=== PATIENT | male | born 1945 | race Caucasian/White ===

== ENCOUNTER 2016-07-29 02:24 | Day surgery (SDC) | payer OTHER ==
[~2016-07-29] VITALS: Ht 188 cm; Wt 138.2 kg
[2016-07-29] VITALS (9 sets, daily range): BP systolic 88–115; BP diastolic 54–72; PULSE 66–90; RESP 14–23; O2SAT 95–97
[~2016-07-29 02:24] MED LIST: ASPI-973 PO; ATOR20TA PO; CLOP75TA3 PO; FURO-129 PO; GLPZ5T PO; INSU3INS3 SUBQ; LISI-567 PO; METF1000 PO; METO-272 PO; OXYC1TAB24 PO; TAMS0.4C98 PO; WARF5TAB PO
[2016-07-29] MEDS ORDERED: Propofol 10,000 mCg/mL 20 mL Inj ONE (02:25)
[2016-07-29] MEDS ORDERED: fentaNYL-PF 50 mCg/mL 2 mL Inj ONE (02:25)
[2016-07-29] MEDS ORDERED: Lactated Ringer's 1,000 ML IV SCH (05:00)
--- NOTE | 2016-07-29 10:33 | PCM.HPANE ---
Patient Data Surgeon Admitting Provider: Attending Provider:Luz Maria Pavon MD Primary Care Physician:Pastor Dela Cruz MD Other Provider:Mely Taylor Anesthesia Reason for Visit Persistent Atrial Fibrillation Ht/WT & BMI Body Mass Index Allergies Coded Allergies: No Known Allergies (Unverified , 05/17/16) Past Anesthesia History Anesthesia History: Denies:: Anesthesia Reactions, Malignant Hyperthermia Diabetes History Hx Diabetes?: Yes (DM2) Type of Diabetes: Type II Glycemic Control: Insulin & Oral Medication MRSA MRSA: No Medications Blood Thinner: Aspirin, Plavix Active Scripts Metoprolol Succinate ER 50 Mg Tab.er.[id number] Mg PO BID #60 Prov:Jean Freitas 06/08/16 Warfarin Sodium (Coumadin)5 Mg Tablet5 Mg PO DAILY #30 TABLET Prov:Jean Freitas 06/08/16 oxyCODONE-Acetaminophen 5-325 mg 1 Each Tablet1-2 Tab PO Q4H PRN For Severe Pain #90 TABLET Prov:Diomedes Cheng DO 05/20/16 Reported Medications Clopidogrel Bisulfate (Plavix)75 Mg Gumxmc07 Mg PO DAILY 30 Days Ref 0 06/07/16 Tamsulosin (Flomax)0.4 Mg Capsule0.4 Mg PO DAILY Ref 0 05/13/16 Insuln Asp Prt/Insulin Aspart (NovoLOG 70/30 U100 Insulin Flexpen)100 Unit/Ml [id number] Unit SUBQ morning and evening #1 PENINJ Ref 0 05/13/16 Metformin (Glucophage)1,000 Mg Tablet1,000 Mg PO BID Ref 0 05/13/16 Lisinopril 20 Mg Gfnuxq00 Mg PO DAILY 30 Days Ref 0 05/13/16 Atorvastatin (Lipitor)20 Mg Rtjzhg48 Mg PO DAILY Ref 0 05/13/16 Glipizide 5 Mg Tablet5 Mg PO BID 30 Days 05/13/16 Furosemide (Lasix)20 Mg Zodklr86 Mg PO DAILY 30 Days Ref 0 05/13/16 Aspirin 81 Mg Ggtsid91 Mg PO DAILY Ref 0 05/13/16 History History of ENT Problems?: Yes HEENT History: Positive for:: Sinus Problem (more so this past month) Hx of Heart Problems?: Yes Cardiovascular History: Positive for:: Atrial Fibrillation (HX OF) Cardiac Surgery (S/P HEART CATH W/ CALEB IN LAD 07/2011) Hypertension (HYPERLIPIDEMIA) Irregular Heartbeat (HX A FIB) Denies:: Congestive Heart Failure Edema Heart Murmur Pacemaker Thrombophlebitis Valvular Heart Disease Hx of Respiratory Problem?: Yes Respiratory History: Positive for:: Dyspnea (transient at rest. ) Denies:: Use of C-PAP Machine Hx Neurologic Problems?: No Neurological History: Denies:: Dizziness Hx of GI Problems?: Yes Gastrointestinal History: Positive for:: Diverticulitis (S/P SIGMOID RESECTION W/ TEMP. COLOSTOMY 1997) Denies:: Gastroesphageal Reflux Gastrointestinal Bleeding Heartburn Hepatitis Hiatal Hernia Rectal Bleeding Hx of Problems?: No Male Hx: Denies:: Prostate Problems Scrotal Mass Testicular Surgery Skin History: Denies:: History Skin Disorders? Pressure Ulcers Hx Musculoskeletal Problems?: Yes Musculoskeletal History: Positive for:: Degenerative Joint Joint Replacement (S/P RT TKA RT RKA LOOSENING=CURRENT PROBLEM) Denies:: Back Injury Musculoskeletal Trauma Hx of Psycho/Social Problems?: No Hx Surgeries?: Yes (Knee replacement. 18'' of bowel removal) Hx Any Other Health Problems?: Yes Other History: Denies:: Cancer Endocrine Disease Hospitalization Thyroid Disease History Blood Transfusions: Positive for:: Blood Transfusions Denies:: Blood Transfuse Reaction Hx Diabetes: Yes (DM2) Hx Alcohol Use: Yes (very very rare)Hx Substance Use: No Smoking Status: Never Smoker Have You Smoked inLast 12 mo: No Stop/Bang Risk Assessment Category Category 1A: Patient has history of documented sleep apnea, and HAS NOT received any narcotic, sedative or anesthesia administration during this stay. Category 1B: Patient has history of documented sleep apnea, and HAS received any narcotic , sedative or anesthesia administration during this stay Category 2: Patient has SUSPECTED Obstructive Sleep Apnea, and HAS received any narcotic , sedative or anesthesia administration during this stay. Category 3: Patient has SUSPECTED Obstructive Sleep Apnea and HAS NOT received narcotic, sedative or anesthesia administration during this stay. Category 4: Outpatient in Procedural Areas with known sleep apnea or who screen positive for High Risk via the STOP/BANG questionnaire. Exam Exam General Appearance: Alert, Oriented X3, Cooperative, No Acute Distress HEENT/AIRWAY: MP 2 Lungs: Clear to Auscultation, Normal Air Movement Heart: Exam Unremarkable, Regular Rate/Rhythm, No Murmurs/Rubs/Gallops Plan Impression Patient chart reviewed, patient interviewed and anesthestic plan with risks, benefits, and alternatives discussed, and informed consent obtained. NPO Status: [id number] 05/17/16 ASA Physical Status: ASA3 Severe Disease Anesthetic Plan: GA Bene/Risks/Altern/Consents: Yes HP Complete Prior to Induction: Yes Mauro Espinoza MD Jul 29, 2016 09:54
--- NOTE | 2016-07-29 11:12 | NUR ---
[facility] ADMIT PETER/CV 71 YR OLD MALE ADMITTED TO [facility] FOR PETER/CV TODAY AT 1000. IV STARTED, QUESTIONS ANSWERED, AND AFIB CONFIRMED ON MONITOR. BEDSIDE PT/INR WAS 2.4/28.4. FINGERSTICK GLUCOSE WAS 137. DR DE LA ROSA AWARE. PROCEDURES WILL BE WITH ANESTHESIA.
--- NOTE | 2016-07-29 12:12 | PCM.ANEP1 ---
Post Anesthesia Phase 1 PACU Phase 1 Assessment Vital Signs Vital Signs Date Time Temp Pulse Resp B/P Pulse Ox O2 Delivery O2 Flow Rate FiO2 07/29/16 12:10 72 22 89/54 97 Nasal Cannula 3.00 07/29/16 12:05 67 23 88/55 97 Nasal Cannula 3.00 07/29/16 11:04 36.7 90 18 115/72 97 Room Air Anesthetic Administered: GA Level of Alertness: Awake, talking MCDONOUGH's with Equal Strength: Yes Pain: No Nausea or Vomiting: No Oxygen Delivery: Nasal Cannula Lungs: Clear to Auscultation, Normal Air Movement Dermatome Level: Full Sensation Mauro Espinoza MD Jul 29, 2016 12:12
--- NOTE | 2016-07-29 12:39 | NUR ---
[facility] HERE FOR BOTH PETER AND CV. PETER WAS ABORTED AND CV TOOK PLACE. PT RECEIVED 200J AND ATTAINED SR. POST EKG WAS DONE. SEE ANESTHESIA RECORD FOR DETAILS OF PROCEDURES. IN POST SEDATION RECOVERY PT HAS REMAINED IN SR WITH VSS. WILL CONTINUE TO MONITOR CLOSELY AND WAIT FOR TO RETURN BEFORE DISCHARGING HOME. Addendum: 07/29/16 at 1504 by NICOL NOWAK RN *PETER WAS ACCOMPLISHED AND PICTURES VIEWED.
--- NOTE | 2016-07-29 13:12 | NUR ---
[facility] DISCHARGE INSTRUCTIONS INCLUDING MEDICATIONS, F/U APPT, AND POST SEDATION INSTRUCTIONS WERE REVIEWED WITH PT AND AND THEY VERBALIZED UNDERSTANDING. PT WAS DISCHARGED WITH AT 1315 IN STABLE CONDITION.
--- NOTE | 2016-07-29 13:23 | PCM.ANEP2 ---
Post Anesthesia Evaluation ASA/CMS Post Anesthesia VS in Patient's Normal Range?: Yes Resp Stable; Airway Patent?: Yes CV Function & Hydration Stable: Yes Mental Status Recovered?: Yes Pain control Satisfactory?: Yes N/V Control Satisfactory?: Yes Mauro Espinoza MD Jul 29, 2016 13:22
--- NOTE | 2016-07-29 15:29 | DRSVH ---
[facility] [address] [place] [address] Echocardiogram Report Name: AMAN JACKSON DStudy Date: 07/29/2016 Height: 74 in Hospital Exam Location: [facility] [place] Weight: 304 lb Gender: Male BSA: 2.6 m2 : 1945 Age: 71 yrs BP: 115/72 mmHg Reason For Study: Persistent atrial fibrillation Ordering Physician: Performed By: Kimani Goss Interpretation Summary 1. No thrombus is appreciated in the left atrium or left atrial appendage. Procedure: A 2D transesophageal echocardiogram with spectral and color flow Doppler was performed. Informed consent for Transesophageal Echocardiogram, and use of a contrast agent as needed, was obtained prior to the procedure. Sedation was managed by anesthesiologist; see anesthesiology notes for details. There were no complications. Atria: The atrial appendage was somewhat difficult to visualize. However, in the views obtained, no thrombus is appreciated. Mitral Valve: Leaflets appear thin with normal excursion. Aortic Valve: The aortic valve is trileaflet. The aortic valve opens well. There is trace aortic regurgitation. Tricuspid Valve: The tricuspid valve is not well visualized. Pulmonic Valve: The pulmonic valve is not well seen, but is grossly normal. Reading Physician:02:09 PM
--- NOTE | 2016-07-29 19:18 | PROCED ---
[address] [address] PROCEDURE NOTE PATIENT: AMAN JACKSON : 1945 MR#: [id number] ADMIT: 07/29/2016 JOB ID: [id number] DATE OF SERVICE: 07/29/2016 POSTOPERATIVE DIAGNOSIS(ES): PREOPERATIVE DIAGNOSIS(ES): SURGEON: Luz Maria Pavon MD PROCEDURES PERFORMED: DC cardioversion. INDICATIONS: Atrial fibrillation. DESCRIPTION OF PROCEDURE: Informed consent was obtained. The patient was brought to the [facility]. Anesthesia provided the anesthesia for the case. Prior to the procedure the patient had a transesophageal echocardiogram which confirmed that there was no evidence for clot in the left atrial appendage or left atrium. Pads were placed in the AP position. After appropriate level of sedation, the patient was given 1 biphasic synchronized shock of 200 joules with conversion from atrial fibrillation to sinus rhythm with a stable blood pressure and heart rate. There were no complications. IMPRESSION: Successful DC cardioversion from atrial fibrillation to sinus rhythm. JESIKA
[2016-10-05] MEDS ORDERED: FUR20 PO (18:39)
[2016-10-05] MEDS ORDERED: INS7030U SUBQ (18:39)
[2016-10-05] MEDS ORDERED: LOV120 SUBQ (18:39)
[2016-10-05] MEDS ORDERED: ASPI-973 PO (18:39)
== END 2016-07-29 23:59 | disposition home or self-care (01) ==
LOC: SOUO 02:24
PROVIDERS: ATTEND Internal Medicine
DX: I48.1 Persistent atrial fibrillation (principal); E11.9 Type 2 diabetes mellitus without complications; Z79.4 Long term (current) use of insulin; Z79.84 Long term (current) use of oral hypoglycemic drugs; Z79.82 Long term (current) use of aspirin; Z79.02 Long term (current) use of antithrombotics/antiplatelets; Z79.01 Long term (current) use of anticoagulants; I25.10 Atherosclerotic heart disease of native coronary artery without angina pectoris; Z95.5 Presence of coronary angioplasty implant and graft; I10 Essential (primary) hypertension
CPT/HCPCS: 92960; 93005; 99151; C8925; J2250; J3010; J7120

== ENCOUNTER 2016-08-16 06:32 | Inpatient (IN) | payer OTHER, MEDICARE ==
[~2016-08-16] VITALS: Ht 188 cm; Wt 135.4 kg
[2016-08-16] VITALS (9 sets, daily range): BP systolic 106–136; BP diastolic 56–83; PULSE 68–104; RESP 16–18; O2SAT 96–99
--- NOTE | 2016-08-16 08:00 | NUR ---
ADMISSION NOTE MALE PT ADMITTED FOR SOTOLOL ADMINISTRATION. DISCUSSED PLAN OF CARE WITH PT. SEE ADMIT AND FLOW SHEET
[2016-08-16] MEDS ORDERED: Alum-Mag Hydrox-Simeth 30 mL Suspension PO PRN (08:25)
[2016-08-16] MEDS ORDERED: Polyethylene Glycol (PEG) 17 Gm Powder PO PRN (08:25)
[2016-08-16 09:09] LABS: Magnesium 1.5 mg/dL (1.6-2.6)
[2016-08-16] MEDS ORDERED: METO-272 PO (09:10)
[2016-08-16] MEDS ORDERED: oxyCODONE-Acetamin 5-325 mg Tablet PO PRN (10:35)
--- NOTE | 2016-08-16 13:30 | NUR ---
TRANSFER NOTE TRANSFERED TO [facility]. REPORT GIVEN
--- NOTE | 2016-08-16 14:43 | HP ---
[address] [address] HISTORY AND PHYSICAL PATIENT: AMAN JACKSON : 1945 MR#: [id number] ADMIT: 08/16/2016 JOB ID: [id number] REASON FOR ADMISSION: Initiation of antiarrhythmic therapy with sotalol for treatment of atrial fibrillation. CHIEF COMPLAINT: Episodic lightheadedness. HISTORY: At the present is a pleasant 71-year-old man who was discovered to have atrial fibrillation after knee surgery a few months ago. He was started on warfarin and after being therapeutic for about a month, he came in for a cardioversion, which was successful and yielded a sinus rhythm but only for a few days, according to the patient. He noticed the return of a rapid and irregular rhythm with episodic lightheadedness again. The patient had not been treated with an antiarrhythmic medication previously and since he had felt improved energy after conversion to sinus rhythm, Dr. Luz Maria Pavon and the patient discussed antiarrhythmic therapy options. With his history of coronary stenting, the flecainide and propafenone medications were ruled out, and they decided on starting him on sotalol. PAST MEDICAL HISTORY: This includes atrial fibrillation, diabetes type 2 and right knee replacement surgery on two occasions. ALLERGIES: No known drug allergies. FAMILY HISTORY: Not contributory. REVIEW OF SYSTEMS: Respiratory: Positive for dyspnea. Neuro: Positive for dizziness. Cardiac: Positive for palpitations. Musculoskeletal: Positive for trace peripheral edema, and recovery from right knee surgery. The other points of the 14 point review of systems are negative. LABORATORY DATA: A 12-lead ECG prior to starting sotalol showed atrial fibrillation with an average ventricular rate of 95 bpm and a QT of 333 msec with a QTc of 419 msec. He has a normal QRS duration. The ECG two hours after the first dose of sotalol showed an average heart rate of 86 bpm, QT 360 msec and QTc of 431 msec. Serum chemistry shows sodium 133, potassium 5.0, chloride 96, BUN 30, creatinine 1.07, magnesium 1.5 and the other measurements are normal. PHYSICAL EXAMINATION: Vital signs: Pulse 104 bpm on initial exam with respiratory rate 17, BP 122/71, oximetry 96% on room air. The patient is a pleasant and cooperative middle-age, white male, in no distress. He is well oriented to person, place and purpose for being here. Head is normocephalic, eye movements and pupils are normal. Neck is without JVD, carotid pulses are weak but there are no bruits. Chest exam: Breath sounds are full and clear in all montalvo. Cardiac exam reveals an irregularly irregular rhythm without gallops or murmurs heard. Abdomen is obese and nontender, bowel sounds present, and there are no abdominal bruits heard. Peripheral pulses are intact, and the lower extremities showed trace edema bilaterally. ASSESSMENT: Paroxysmal and persistent atrial fibrillation for the past few months. He is symptomatic with episodic lightheadedness and palpitations. Antiarrhythmic therapy will be started with sotalol 80 mg q.12 h. with 12-lead ECGs recorded at 2-3 hours after each dose to observe and measure the QT interval. If he remains within 15% of baseline, then the dose can be continued. If he remains in atrial fibrillation and the QT interval remains in range, then we will consider increasing the sotalol dose to 120 mg q.12 h. in the hopes of affecting a spontaneous conversion or maintaining sinus rhythm after cardioversion.
[2016-08-16] MEDS: MeTOProlol XL 50 mg ER24 Tablet PO SCH ×2 (15:06→19:55)
--- NOTE | 2016-08-16 15:24 | NUR ---
From [facility] to [id number] via wheelchair at 1330. Atrial-fib on tele. BP stable, afebrile. A/O and in good spirits. RA sats 96%, denies pain or shortness of breath, appears in no distress. Sotalol dose given at 1030, scheduled Q12hr with 12-lead EKG 2-3 hours after dose. Sitting up in bed watching tv, no concerns at this time.
[2016-08-16] MEDS: metFORMIN ER 500 mg ER24 Tablet PO SCH (18:16)
[2016-08-16] MEDS: Insulin ASPART 70/30 FlexPen 300 Unit/3 mL Inj SUBQ PRN (21:02)
[2016-08-17] VITALS (7 sets, daily range): BP systolic 107–126; BP diastolic 70–82; PULSE 70–106; RESP 16–20; O2SAT 96–98
[2016-08-17 03:09] LABS: INR 1.57 ratio
--- NOTE | 2016-08-17 04:48 | NUR ---
Sotalol / QTc / Tele / Hyperglycemia Sotalol 80mg administered at 2230, EKG done 2 hours after administration, with a QTc of 409. Baseline QTc 419. Pt denies chest pain, pressure or palpitations, Tele Afib with PVCs with HR 60-80s per Clay Artisan. HS blood glucose was 266, covered with PRN Novolog 70/30 with 35 units. Am re-check of blood glucose was 87, Pt given apple juice to hold his sugars until morning.
[2016-08-17] MEDS ORDERED: Benzoc-Butamben-Tetraca Spray 20 Gm Spray TOPICAL ONE (06:00)
[2016-08-17] MEDS: metFORMIN ER 500 mg ER24 Tablet PO SCH ×2 (07:51→16:58)
[2016-08-17] MEDS: MeTOProlol XL 50 mg ER24 Tablet PO SCH ×3 (07:52→19:53)
[2016-08-17] MEDS: Insulin ASPART 70/30 FlexPen 300 Unit/3 mL Inj SUBQ PRN ×3 (07:55→17:02)
--- NOTE | 2016-08-17 11:20 | PROG NOTE ---
[address] [address] PROGRESS NOTE PATIENT: AMAN JACKSON : 1945 MR#: [id number] ADMIT: 08/16/2016 JOB ID: [id number] DATE: 08/17/2016 CHIEF COMPLAINT: Episodic lightheadedness and fatigue in atrial fibrillation. SUBJECTIVE: The patient is a very pleasant 71-year-old man who has persistent atrial fibrillation which is symptomatic. He had a cardioversion earlier in July when not on antiarrhythmic medication and he relapsed back into atrial fibrillation a few days after the procedure. He was admitted yesterday for initiation of antiarrhythmic therapy with sotalol and is tolerating the medication well. He has received two doses and feels no side effects. The patient has cardiac awareness of the irregular rhythm but is otherwise doing well. LABORATORY DATA: Today shows an INR of 1.57. His ECG after the second dose of sotalol shows essentially no change in the QT interval. The QTc is 409 msec which is not prolonged. OBJECTIVE: Vital signs this morning are BP 126/78, pulse rate averaged 71 per minute, oxygen 97% on room air. The physical examination is unchanged from yesterday. ASSESSMENT: The patient is tolerating sotalol 80 mg b.i.d. well and there is no significant prolongation of the QT interval on EKG. Unexpectedly, his INR is subtherapeutic. He has had INRs between 2 and 3 for the weeks prior to the cardioversion but the number has dropped since then. PLAN: He will be given an additional 10 mg dose of warfarin this morning and have the INR checked again about 5 p.m. this evening. The patient will receive Lovenox 120 mg subcu b.i.d. to cover for anticoagulation until the INR is above 2 again. This morning, we will not increase the sotalol dose to 120 mg because we do not want to enhance the probability of a spontaneous conversion. For tomorrow, arrangements will be made for a PETER and cardioversion with Dr. Pavon. She prefers general anesthesia for the PETER and that will also be arranged. If the patient has no left atrial thrombus on PETER, then he will be cardioverted. Depending on his QT intervals, we may increase the sotalol dose after the cardioversion.
--- NOTE | 2016-08-17 14:53 | PCM.PHAPRO ---
Progress Warfarin dosing for AFIB Admit for chemical cardioversion [facility]Aug 19Aug 20Aug 21Aug 22Aug 23Jul 27 INR PEND 1.57 INR change #VALUE! Warf Dose 5MG X1 15mg total a/ Subtherapeutic INR of unknown chronicity p/ Cards will defer cardioversion until duration of subtx anticoagulation known Bump dose of 10mg per cardiology request today. Roshan Lucero S Pharm D Aug 17, 2016 14:53
--- NOTE | 2016-08-17 16:05 | NUR ---
Sotalol Patient received 80mg dose of sotalol at 1000. EKG done at 1200, QTc 463. Patient denies any pain/disconfort. VSS. Patient up walking around unit independently.
[2016-08-17] MEDS: Sodium Chloride LOK Flush 10 mL Syringe IVFLUSH SCH ×4 (16:57→22:01)
[2016-08-17 17:17] LABS: INR 1.57 ratio
[2016-08-18 03:02] VITALS: BP 117/79; PULSE 66; RESP 18; O2SAT 97
[2016-08-18 03:16] LABS: INR 1.85 ratio
--- NOTE | 2016-08-18 05:01 | NUR ---
Sotalol Protocol Sotalol dose administered at 2200, EKG done around 0020, QTc at 447. No c/o chest pain, pressure or palpitations. Tele Afib 60-80s with occ PVCs. VSS and afebrile. No c/o SOB, RA SpO2 sats 97-98%. Pt up in room independently, gait steady.
[2016-08-18 05:42] VITALS: PULSE 87
[2016-08-18 08:00] VITALS: PULSE 77
[2016-08-18] MEDS ORDERED: 0.9% Sodium Chloride 1,000 ML IV SCH (08:00)
[2016-08-18 08:24] VITALS: BP 106/64; PULSE 82; RESP 14; O2SAT 98
[2016-08-18] MEDS: Insulin ASPART 70/30 FlexPen 300 Unit/3 mL Inj SUBQ PRN ×2 (08:35→12:06)
[2016-08-18] MEDS: metFORMIN ER 500 mg ER24 Tablet PO SCH (08:36)
[2016-08-18] MEDS: MeTOProlol XL 50 mg ER24 Tablet PO SCH (08:36)
[2016-08-18] MEDS: Sodium Chloride LOK Flush 10 mL Syringe IVFLUSH SCH ×2 (08:37)
[2016-08-18 11:50] VITALS: BP 101/59; PULSE 82; RESP 18; O2SAT 96
--- NOTE | 2016-08-18 12:28 | PCM.DIMED ---
Discharge Instructions Date of Service Aug 18, 2016 Dates of Hospitalization Aug 16, 2016 at 08:18 Discharge Diagnosis Discharge Diagnosis Persistent Atrial Fibrillation Diabetes Diet Diabetic Activity No restrictions Call your provider Other (Fainting or near Fainting) Patient Instructions Provider: Luz Maria Pavon MD Follow-up in: 4 weeks (Office will call you.) Luisito Rivera PA-C Aug 18, 2016 12:28
[2016-08-18] MEDS ORDERED: WARF5TAB PO (12:32)
[2016-08-18] MEDS ORDERED: METO-272 PO (12:32)
[2016-08-18] MEDS ORDERED: BET80 PO (12:32)
--- NOTE | 2016-08-18 13:15 | NUR ---
Social Work Discharge: SW met with patient at bedside to discuss discharge plan. Patient states residing in [place] with Jasmin, . Patient states residing in a one story home and to assist and care for needs. Patient payer as [employer] and Medicare. Patient states PCP as MD Dela Cruz. Patient has no previous HHC or SNF history. Patient has a walker and cane for use at home. Patient has no AD and declined completion at this time. Patient independent with needs and ambulating in room. Patient denied any discharge needs at this time. SW will continue to follow if further needs arise PLAN: Home with via POV. No anticipated discharge needs identified at this time. SW to follow. Anne HINES Addendum: 08/18/16 at 1320 by DENISE QUESADA SS Amended: Links added.
--- NOTE | 2016-08-18 13:20 | NUR ---
Discharge Patient continues to be in Afib but is not a candidate for cardioversion due to non therapeutic INR levels. Patient returning home on Lovenox, warfarin and sotalol. He will follow up with cardiology as outpatient. Paper rx and discharge instructions printed and reviewed verbally with patient. All questions answered, IV DC'd intact. Patient ambulated off unit with all personal belongings and discharged home via personal vehicle.
[2016-10-05] MEDS ORDERED: ASPI-973 PO (18:39)
[2016-10-05] MEDS ORDERED: FUR20 PO (18:39)
[2016-10-05] MEDS ORDERED: LOV120 SUBQ (18:39)
[2016-10-05] MEDS ORDERED: INS7030U SUBQ (18:39)
--- NOTE | 2016-11-03 09:47 | DIS ---
[address] [address] DISCHARGE SUMMARY PATIENT: AMAN JACKSON : 1945 MR#: [id number] ADMIT: 08/16/2016 JOB ID: [id number] DIS: 08/18/2016 REASON FOR ADMISSION: The patient was admitted to start new medical therapy for atrial fibrillation with sotalol. CHIEF COMPLAINT: Episodic lightheadedness. BRIEF HISTORY: The patient is a very pleasant 71-year-old man who was found to have atrial fibrillation after knee surgery a few months ago. He was started on warfarin, and after being therapeutic for about a month, he was cardioverted to sinus rhythm which according to his symptoms he felt it lasted only a few days. He noticed the return to rapid and irregular rhythm with episodic lightheadedness. With his particular cardiac history and anatomy, it was deemed best that he be started on sotalol rather than other antiarrhythmic medications and this hospitalization was arranged for that purpose. He was to be started on sotalol 80 mg b.i.d. with an increase in dose if possible and then cardioverted with hopes of maintaining sinus rhythm and improving his symptoms. COURSE IN HOSPITAL: The patient was admitted to the telemetry unit, and after baseline ECG and lab work were obtained, he was started on sotalol 80 mg b.i.d. His baseline serum chemistry showed normal potassium but a low magnesium at 1.5. He was treated with magnesium oxide 800 mg b.i.d. and the serum magnesium decreased into the normal range and was 1.9 on the second day. Also it was noted that his initial INR was 1.57 which is subtherapeutic. He was given additional, increased doses of warfarin but after two days, his INR was still only 1.85. Lovenox 120 mg q.12 hours by subcutaneous injection was administered to cover the anticoagulation need. The patient remained in atrial fibrillation even after the fifth dose of sotalol 80 mg. The 12 lead ECG showed no abnormal increase in the QT interval and so he was discharged on sotalol at 80 mg b.i.d. He felt well on sotalol and had no side effect symptoms. DISPOSITION: The patient was discharged home in good condition with a prescription for Lovenox 120 mg q.12 hours to be administered until his INR from warfarin became in the therapeutic range of 2-3. He was scheduled with a follow up appointment with Dr. Pavon in one month. He will continue his diabetic diet and there are no activity restrictions from this hospitalization. DISCHARGE MEDICATIONS: 1. Sotalol 80 mg b.i.d. 2. Atorvastatin 20 mg daily. 3. Plavix 75 mg daily. 4. Furosemide 40 mg daily. 5. Glipizide 5 mg b.i.d. 6. Metformin 1 g b.i.d. 7. Oxycodone-acetaminophen 5/325 mg tablets, 1 or 2 tablets p.o. q.4 hours p.r.n. pain. 8. Tamsulosin 0.4 mg daily. 9. Metoprolol succinate 50 mg t.i.d. FINAL DIAGNOSES: 1. Persistent, symptomatic atrial fibrillation. 2. Diabetes mellitus type 2.
== END 2016-08-18 13:00 | disposition home or self-care (01) | DRG 310 ==
LOC: SOU 08:18 → PCC 13:00
PROVIDERS: ADMIT Internal Medicine; ATTEND Internal Medicine
PROC: 3E0D7RZ Introduction of Antiarrhythmic into Mouth and Pharynx, Via Natural or Artificial Opening (ICD-10-PCS; principal; 2016-08-16)
DX: I48.0 Paroxysmal atrial fibrillation (principal); E11.9 Type 2 diabetes mellitus without complications; Z79.4 Long term (current) use of insulin; Z79.01 Long term (current) use of anticoagulants

== ENCOUNTER 2016-10-06 00:30 | Day surgery (SDC) | payer OTHER ==
[~2016-10-06] VITALS: Ht 188 cm; Wt 138.0 kg
[2016-10-06] VITALS (8 sets, daily range): BP systolic 84–110; BP diastolic 45–79; PULSE 81–88; RESP 11–17; O2SAT 94–99
[~2016-10-06 00:30] MED LIST changes: +BET80 PO; +FUR20 PO; +INS7030U SUBQ; -INSU3INS3 SUBQ; +LOV120 SUBQ
[2016-10-06] MEDS ORDERED: Propofol 10 mg/mL 20 mL Inj ONE (00:31)
[2016-10-06] MEDS ORDERED: Lactated Ringer's 1,000 ML IV SCH ×2 (05:00→07:02)
[2016-10-06] MEDS ORDERED: Lactated Ringer's 500 ML IV PRN (07:02)
[2016-10-06] MEDS ORDERED: Labetalol 5 mg/mL 4 mL Inj IV PRN (07:05)
[2016-10-06] MEDS ORDERED: fentaNYL-PF 50 mCg/mL 2 mL Inj IVPUSH PRN (07:05)
[2016-10-06] MEDS ORDERED: Ondansetron 2 mg/mL 2 mL Inj IVPUSH PRN (07:05)
[2016-10-06] MEDS ORDERED: HYDROmorphone 1 mg/mL Inj IVPUSH PRN (07:05)
[2016-10-06] MEDS ORDERED: Phenylephrine 10,000 mCg/mL Inj IVPUSH PRN (07:05)
[2016-10-06] MEDS ORDERED: MetoCLOpramide 5 mg/mL 2 mL Inj IVPUSH PRN (07:05)
[2016-10-06] MEDS ORDERED: Dexamethasone 4 mg/mL Inj IVPUSH PRN (07:05)
[2016-10-06] MEDS ORDERED: EPHEDrine Sulfate 50 mg/mL Inj IVPUSH PRN (07:05)
[2016-10-06 14:17] LABS: BASOPHILS % (AUTO) 0.7 % (0-3); EOSINOPHILS % (AUTO) 2.5 % (0-5); MONOCYTES % (AUTO) 8.6 % (4-12); Mean Corpuscular Hemoglobin 29.4 pg (27.0-35.0); Mean Corpuscular Volume 89.3 fL (81-100); NEUTROPHILS % (AUTO) 62.9 % (40-74); Platelet Count 212 bil/L (150-400)
[2016-10-06] MEDS ORDERED: RIVA20TA PO (14:23)
[2016-10-06] MEDS ORDERED: LISI10TA PO (14:23)
--- NOTE | 2016-10-06 16:30 | NUR ---
Discharge instructions reviewed with patient and spouse. Despite cardioversion attempt x 2, patient remains in atrial fibrillation. Dr Pavon has spoken with patient and spouse about plan for treatment.
--- NOTE | 2016-10-07 01:56 | PROCED ---
[address] [address] PROCEDURE NOTE PATIENT: AMAN JACKSON : 1945 MR#: [id number] ADMIT: 10/06/2016 JOB ID: [id number] DATE OF SERVICE: 10/06/2016 PREOPERATIVE DIAGNOSIS(ES): POSTOPERATIVE DIAGNOSIS(ES): SURGEON: PROCEDURE PERFORMED: Direct current cardioversion. INDICATIONS: This is a 71-year-old man with persistent atrial fibrillation. Although it is rate controlled he is symptomatic with this. He presents for cardioversion. PROCEDURE: Informed consent was obtained prior to the procedure. The patient confirmed that he had been on his anticoagulation regularly. Pads were placed in the AP position. Anesthesia was provided by the Anesthesia service. Using a 200 joule biphasic synchronized shock the patient was initially converted to sinus rhythm. Unfortunately, he reverted back to atrial fibrillation fairly quickly. As he was still well-sedated, an additional biphasic synchronized shock of 200 joules was delivered to conversion for brief period of sinus rhythm, once again back to atrial fibrillation. IMPRESSION: Successful conversion to sinus rhythm but it was only briefly sustained, reverting back to atrial fibrillation despite being on beta-kodak, as well as sotalol. JESIKA
== END 2016-10-06 23:59 | disposition home or self-care (01) ==
LOC: SOUO 00:30
PROVIDERS: ATTEND Internal Medicine
DX: I48.91 Unspecified atrial fibrillation (principal); Z79.01 Long term (current) use of anticoagulants; Z79.899 Other long term (current) drug therapy

== ENCOUNTER 2016-11-16 00:25 | Day surgery (SDC) | payer MEDICARE, OTHER ==
[~2016-11-16] VITALS: Ht 188 cm; Wt 137.8 kg
[2016-11-16] VITALS (17 sets, daily range): BP systolic 92–119; BP diastolic 60–75; PULSE 70–94; RESP 12–20; O2SAT 94–98
[~2016-11-16 00:25] MED LIST changes: -FUR20 PO; -LISI-567 PO; +LISI10TA PO; -LOV120 SUBQ; +RIVA20TA PO; -WARF5TAB PO
[2016-11-16] MEDS ORDERED: Propofol 10,000 mCg/mL 20 mL Inj ONE (00:26)
[2016-11-16] MEDS ORDERED: EPHEDrine/NS 5 mg/mL 5 mL Syringe ONE (00:26)
[2016-11-16] MEDS ORDERED: fentaNYL-PF 50 mCg/mL 2 mL Inj ONE (00:26)
[2016-11-16] MEDS ORDERED: Lidocaine PF 1% 30 mL Inj ONE (00:26)
[2016-11-16] MEDS ORDERED: Glycopyrrolate 0.2 MG/ML 1mL Inj ONE (00:26)
[2016-11-16] MEDS ORDERED: Ondansetron 2 mg/mL 2 mL Inj ONE (00:26)
[2016-11-16] MEDS ORDERED: Succinylcholine Chloride 20 mg/mL 5 mL Inj ONE (00:26)
[2016-11-16] MEDS ORDERED: Phenylephrine/NS 100 mCg/mL 10 mL Syringe IVPUSH ONE (00:26)
[2016-11-16] MEDS ORDERED: Lactated Ringer's 1,000 ML IV SCH ×2 (05:00→12:08)
[2016-11-16] MEDS ORDERED: Benzoc-Butamben-Tetraca Spray 20 Gm Spray TOPICAL PRN (09:05)
[2016-11-16] MEDS ORDERED: Vancomycin Inj 2,000 MG in 0.9% Sodium Chloride 500 ML IV ONE (10:00)
[2016-11-16 11:24] LABS: BASOPHILS % (AUTO) 0.6 % (0-3); EOSINOPHILS % (AUTO) 2.7 % (0-5); MONOCYTES % (AUTO) 8.9 % (4-12); Mean Corpuscular Hemoglobin 30.4 pg (27.0-35.0); Mean Corpuscular Volume 88.4 fL (81-100); NEUTROPHILS % (AUTO) 61.7 % (40-74); Platelet Count 212 bil/L (150-400)
[2016-11-16 11:40] LABS: INR 1.06 ratio
[2016-11-16] MEDS ORDERED: Heparin 1,000 Units/500 mL NS Premix IV ONE (11:54)
[2016-11-16] MEDS ORDERED: Heparin 1,000 Unit/mL 10 mL Inj ONE ×3 (11:55→15:45)
[2016-11-16] MEDS ORDERED: Heparin 25,000 Unit/500 mL 0.45% NS Premix IV ONE (12:05)
[2016-11-16] MEDS ORDERED: Lactated Ringer's 500 ML IV PRN (12:08)
--- NOTE | 2016-11-16 12:08 | PCM.HPANE ---
Patient Data Date of Service: November 16, 2016 Surgeon Admitting Provider: Attending Provider:Edil Vargas MD Primary Care Physician:Pastor Dela Cruz MD Other Provider:Mely Taylor Anesthesia Reason for Visit Persistent Atrial Fibrillation Ht/WT & BMI Height (Feet): 6 Height (Inches): 2.00 Weight (Kilograms): 137.800 Body Mass Index 38.99 Allergies Coded Allergies: No Known Allergies (Unverified , 05/17/16) Past Anesthesia History Anesthesia History: Denies:: Anesthesia Reactions, Malignant Hyperthermia Diabetes History Hx Diabetes?: Yes Type of Diabetes: Type II Glycemic Control: Insulin & Oral Medication Current Bedside Blood Glucose: 185 MRSA MRSA: No Medications Blood Thinner: Aspirin, Plavix Hypertension Medication: Yes Home Meds Incl Beta Narendra: Yes Date Beta Narendra Taken: November 16, 2016 Time Beta Narendra Taken: 08:00 Active Scripts Sotalol (Betapace)80 Mg Opxjen08 Mg PO Q12H #60 TAB Ref 6 Prov:Luisito Rivera PA-C 08/18/16 Metoprolol Succinate ER 50 Mg Tab.er.24h50 Mg PO TID #90 TABLET Ref 0 Prov:Luisito Rivera PA-C 08/18/16 oxyCODONE-Acetaminophen 5-325 mg 1 Each Tablet1-2 Tab PO Q4H PRN For Severe Pain #90 TABLET Prov:Diomedes Cheng DO 05/20/16 Reported Medications Rivaroxaban (Xarelto)20 Mg Yhdcgh26 Mg PO DAILY 10/06/16 Lisinopril 10 Mg Zzxyvb34 Mg PO DAILY 30 Days Ref 0 10/06/16 Insul NPH Hu Rec/Ins Rg Hu Rec (Novolin 70/30 U100 Insulin Vial)100 U/1 Ml U35 SUBQ #1 VIAL Ref 0 10/05/16 Aspirin 81 Mg Kqprho26 Mg PO DAILY Ref 0 10/05/16 Clopidogrel Bisulfate (Plavix)75 Mg Bbxexj81 Mg PO DAILY 30 Days Ref 0 06/07/16 Tamsulosin (Flomax)0.4 Mg Capsule0.4 Mg PO DAILY Ref 0 05/13/16 Metformin (Glucophage)1,000 Mg Tablet1,000 Mg PO BID Ref 0 05/13/16 Atorvastatin (Lipitor)20 Mg Scsnmd56 Mg PO DAILY Ref 0 05/13/16 Glipizide 5 Mg Tablet5 Mg PO BID 30 Days 05/13/16 Furosemide (Lasix)20 Mg Eyinjo31 Mg PO DAILY 30 Days Ref 0 05/13/16 History History of ENT Problems?: Yes HEENT History: Denies:: Cataracts Dysphagia Sinus Problem Denture Type: None Teeth Condition: Within Normal Limits Hx of Heart Problems?: Yes Cardiovascular History: Positive for:: Atrial Fibrillation (HX OF) Cardiac Surgery (S/P HEART CATH W/ CALEB IN LAD 07/2011) Hypertension Irregular Heartbeat (HX A FIB) Denies:: Chest Pain Congestive Heart Failure Edema Heart Murmur Pacemaker Thrombophlebitis Valvular Heart Disease Hx of Respiratory Problem?: Yes Respiratory History: Positive for:: Dyspnea (WITH EXERTION) Denies:: Asthma Chest Surgery Pneumonia Tuberculosis Use of C-PAP Machine Hx Neurologic Problems?: No Neurological History: Denies:: CVA Dementia Dizziness Headaches Parkinson's Disease Seizures Hx of GI Problems?: Yes Hx of Problems?: No Male Hx: Denies:: Prostate Problems Scrotal Mass Testicular Surgery Skin History: Denies:: History Skin Disorders? Pressure Ulcers Hx Musculoskeletal Problems?: Yes Musculoskeletal History: Positive for:: Degenerative Joint Joint Replacement (S/P RT TKA RT RKA LOOSENING=CURRENT PROBLEM) Denies:: Back Injury Musculoskeletal Trauma Hx of Psycho/Social Problems?: No Hx Surgeries?: Yes (Knee replacement. 18'' of bowel removal) Hx Any Other Health Problems?: Yes Other History: Positive for:: Hospitalization Denies:: Cancer Endocrine Disease Thyroid Disease History Blood Transfusions: Positive for:: Accept Blood Products? Blood Transfusions Denies:: Blood Transfuse Reaction Hx Diabetes: YesBedside Blood Glucose: 185 Hx Alcohol Use: Yes (very very rare)Hx Substance Use: No Smoking Status: Never Smoker Have You Smoked inLast 12 mo: No Stop/Bang Treated for Sleep Apnea?: No Do You Have a CPAP Machine?: No ARTHUR Risk Assessment: High Risk, =/>3 Yes ARTHUR Category 2: Yes Risk Assessment Category Category 1A: Patient has history of documented sleep apnea, and HAS NOT received any narcotic, sedative or anesthesia administration during this stay. Category 1B: Patient has history of documented sleep apnea, and HAS received any narcotic , sedative or anesthesia administration during this stay Category 2: Patient has SUSPECTED Obstructive Sleep Apnea, and HAS received any narcotic , sedative or anesthesia administration during this stay. Category 3: Patient has SUSPECTED Obstructive Sleep Apnea and HAS NOT received narcotic, sedative or anesthesia administration during this stay. Category 4: Outpatient in Procedural Areas with known sleep apnea or who screen positive for High Risk via the STOP/BANG questionnaire. Exam Exam Vital Signs Vital Signs Date Time Temp Pulse Resp B/P Pulse Ox O2 Delivery O2 Flow Rate FiO2 11/16/16 11:55 94 18 119/74 11/16/16 11:24 36.5 94 18 119/74 97 Room Air General Appearance: Alert, Oriented X3, Cooperative HEENT/AIRWAY: MP 2, Neck Movement (Full), Mouth Opening (Wide) Lungs: Clear to Auscultation, Normal Air Movement Heart: Normal S1, Normal S2 Meds/Labs/Diagnostics Bedside Blood Glucose: 185 Labs Test 11/16/16 11:21 White Blood Count 6.4th/mm3 (3.8-10.1) Red Blood Count 4.67mil/mm3 (4.40-5.80) Hemoglobin 14.2g/dL (13.8-17.2) Hematocrit 41.3% (41.0-50.0) Mean Corpuscular Volume 88.4fL (81-100) Mean Corpuscular Hemoglobin 30.4pg (27.0-35.0) Mean Corpuscular Hemoglobin Concent 34.4% (32.0-37.0) Red Cell Distribution Width 15.4% (12.3-15.4) Platelet Count 212bil/L (150-400) Neutrophils (%) (Auto) 61.7% (40-74) Lymphocytes (%) (Auto) 25.8% (14-46) Monocytes (%) (Auto) 8.9% (4-12) Eosinophils (%) (Auto) 2.7% (0-5) Basophils (%) (Auto) 0.6% (0-3) Prothrombin Time 11.4sec (8.1-12.5) Prothromb Time International Ratio 1.06ratio Sodium Level 137mEq/L (134-144) Potassium Level 5.1mEq/L (3.5-5.2) Chloride Level 99mEq/L (97-108) Carbon Dioxide Level 23mmol/L (18-29) Blood Urea Nitrogen 35mg/dL (8-27) Creatinine 1.28mg/dL (0.76-1.27) Estimat Glomerular Filtration Rate 59mL/min (>59) Glucose Level 189mg/dL (60-99) Calcium Level 10.5mg/dL (8.5-10.1) Plan Impression Patient chart reviewed, patient interviewed and anesthestic plan with risks, benefits, and alternatives discussed, and informed consent obtained. NPO per Anesth. Guidelines: Yes Anesthetic Support Modalities: Sandwich Scope, Arterial Line Anesthetic Plan: GA Bene/Risks/Altern/Consents: Yes HP Complete Prior to Induction: Yes Emmanuel Campa MD November 16, 2016 12:08
[2016-11-16] MEDS ORDERED: Phenylephrine 10,000 mCg/mL Inj IVPUSH PRN (12:10)
[2016-11-16] MEDS ORDERED: EPHEDrine Sulfate 50 mg/mL Inj IVPUSH PRN (12:10)
[2016-11-16] MEDS ORDERED: Ondansetron 2 mg/mL 2 mL Inj IVPUSH PRN (12:10)
[2016-11-16] MEDS ORDERED: fentaNYL-PF 50 mCg/mL 2 mL Inj IVPUSH PRN (12:10)
[2016-11-16] MEDS ORDERED: HYDROmorphone 1 mg/mL Inj IVPUSH PRN (12:10)
[2016-11-16] MEDS ORDERED: Dexamethasone 4 mg/mL Inj IVPUSH PRN (12:10)
[2016-11-16] MEDS ORDERED: MetoCLOpramide 5 mg/mL 2 mL Inj IVPUSH PRN (12:10)
--- NOTE | 2016-11-16 12:57 | NUR ---
BLESSING Patient admitted to [facility] at 1100 for PETER/Ablation. at bedside. Patient denies pain. HL X 2 placed and labs drawn. ECG 12 complete. Consent verified. History and medications reviewed. Pre-procedure teaching done and and questions answered.
[2016-11-16] MEDS ORDERED: Heparin 10,000 Unit/1,000 mL NS Premix IV ONE (13:35)
[2016-11-16] MEDS ORDERED: 0.9% Sodium Chloride 1,000 ML ONE (16:00)
[2016-11-16] MEDS ORDERED: Protamine Sulfate 10 mg/mL 5 mL Inj ONE ×2 (16:35→16:57)
--- NOTE | 2016-11-16 16:41 | DRSVH ---
[facility] [address] [place] [address] Echocardiogram Report Name: AMAN JACKSON DStudy Date: 11/16/2016 Hospital Exam Location: [facility] Gender: Male : 1945 Age: 71 yrs Reason For Study: Atrial fibrillation Ordering Physician: Edil Vargas Performed By: Lara Elizabeth Interpretation Summary The ejection fraction is estimated to be 40-45%. There is moderate global hypokinesis of the left ventricle. The right ventricle is mildly dilated. Right ventricular systolic function is mildly reduced. Spontaneous contrast in left atrial appendage. Spontaneous contrast in LA. No thrombus is detected in the left atrial appendage. Contrast injection with Definity was performed. Procedure: Informed consent for Transesophageal Echocardiogram, and use of a contrast agent as needed, was obtained prior to the procedure. The patient was brought to the cardiac catheterization lab in a fasting state. Sedation was managed by anesthesiologist; see anesthesiology notes for details. A multifrequency, multiplane transesopheageal echocardiographic endoscope was inserted and manipulated in the standard fashion to achieve multiplane views. The transesophageal probe was passed without difficulty. A 2D transesophageal echocardiogram with spectral and color flow Doppler was performed. The patient's vital signs, including blood pressure, heart rate, pulse oximetry and cardiac rhythm were monitored throughout the procedure and remained stable. The patient tolerated the procedure well without evidence of orophangeal or esophageal trauma. Contrast injection with Definity was performed. There were no complications. Left Ventricle: The ejection fraction is estimated to be 40-45%. There is moderate global hypokinesis of the left ventricle. Right Ventricle: The right ventricle is mildly dilated. Right ventricular systolic function is mildly reduced. Atria: Spontaneous contrast in left atrial appendage. Spontaneous contrast in LA. No thrombus is detected in the left atrial appendage. There is no Doppler evidence for an interatrial shunt. Aortic Valve: The aortic valve is trileaflet. The aortic valve opens well. Tricuspid Valve: The tricuspid valve leaflets are thin and pliable. Pulmonic Valve: The pulmonic valve leaflets are thin and pliable; valve motion is normal. Reading Physician:CECILIO
--- NOTE | 2016-11-16 17:50 | PCM.ANEP1 ---
Post Anesthesia PACU Phase 1 Assessment Date of Service: November 16, 2016 Vital Signs Vital Signs Date Time Temp Pulse Resp B/P Pulse Ox O2 Delivery O2 Flow Rate FiO2 11/16/16 17:45 73 20 110/64 11/16/16 17:45 73 20 110/64 95 Nasal Cannula 4.00 11/16/16 17:38 35.9 73 16 99/65 98 simple 10.00 11/16/16 11:55 94 18 119/74 11/16/16 11:24 36.5 94 18 119/74 97 Room Air Anesthetic Administered: GA Level of Alertness: Awake, talking MCDONOUGH's with Equal Strength: Yes Pain: No Nausea or Vomiting: No CV Function & Hydration Stable: Yes Airway Device: Oxygen Delivery: Simple Mask Lungs: Normal Air Movement Dermatome Level: Full Sensation PACU Phase 2 Assessment Complications: No Follow up Care: N/A Patient Instructions Provided: N/A Emmanuel Campa MD November 16, 2016 17:49
[2016-11-16] MEDS ORDERED: Glucose 40% Oral Gel 15 Gm Tube PO PRN (18:40)
--- NOTE | 2016-11-16 20:14 | NUR ---
BLESSING Patient return to [facility] 3 from seed analysis laboratory assistant PETER/ablation with anesthesia at 1535. Sleeping but wakes to voice. Denies pain. No bleeding or hematoma at bilateral groin venous punctures. After 1 hour HOB up 30 degrees. Patient awake and taking PO. Sharma placed in seed analysis laboratory assistant draining kirsty urine. Pedal pulses present. Right radial art line DC'd. When patient fully awake ate dinner. Continued without pain and no bleeding or hematoma. Transport to room 2003 by bed at 1930. On arrival to room groin check with receiving RN, blood at left groin. Area cleaned and small ooze noted. Dressing replaced with weight. Report complete to receiving RN and aware that frequent groin checks are needed until ooze resolved.
--- NOTE | 2016-11-16 22:09 | PROCED ---
[address] [address] PROCEDURE NOTE PATIENT: AMAN JACKSON : 1945 MR#: [id number] ADMIT: 11/16/2016 JOB ID: [id number] DATE OF SERVICE: 11/16/2016 PREOPERATIVE DIAGNOSIS(ES): Paroxysmal drug refractory symptomatic atrial fibrillation. POSTOPERATIVE DIAGNOSIS(ES): Paroxysmal drug refractory symptomatic atrial fibrillation. PROCEDURES PERFORMED: 1. Comprehensive electrophysiology study. 2. Three-dimensional electroanatomic mapping using the CARTO 3 system. 3. Intracardiac echocardiography. 4. Transseptal puncture times two. 5. Barium esophagram. 6. Atrial fibrillation ablation with pulmonary vein isolation. 7. Direct current cardioversion. 8. Fluoroscopy. SURGEON: Edil Vargas MD, electrophysiology attending. ASSOCIATE PROFESSOR OF COMMUNICATION: 1. Luisito Rivera PA-C 2. Thu Quinones 3. Chilango Sharif. ANESTHESIA: General endotracheal anesthesia was undertaken for this case. INDICATION: The patient is a pleasant 71-year-old man with mild LV systolic dysfunction, coronary artery disease, and symptomatic atrial fibrillation refractory to direct therapy. After discussion of risks and benefits of catheter based mapping ablation, he opted to proceed. PROCEDURAL DESCRIPTION: Following informed consent, this patient was taken to the EP laboratory in a fasting state where he was prepped and draped in the usual sterile fashion. He underwent a preprocedural transesophageal echocardiogram confirming lack of intracardiac thrombus. This was performed by Dr. Schofield. Please see separate dictated report for the details of that procedure. The bilateral groins were then infiltrated with 1% lidocaine. Then, utilizing the moderate Seldinger technique, two 8-Micronesian sheaths were inserted into the right femoral vein. A 7 and 10.5-Micronesian sheath were inserted into the left femoral vein. Under fluoroscopic guidance, a deflectable decapolar catheter was advanced to the coronary sinus with multiple proximal bipoles at the os of the sinus. An intracardiac echocardiography probe was advanced to the RV outflow tract, and used to visualize the pericardial space. No effusion was noted. The ICE probe was pulled back into the right atrium and used to visualize the interatrial septum and assistance with transseptal puncture. Two transseptal punctures were performed in an identical fashion. Each of the short 8-Micronesian sheaths in the right groin were exchanged over a long wire for a Bustamante sheath dilator and Morris Brockenbrough needle. The entire system was used to engage the interatrial septum. Then, under fluoroscopic ICE and pressure guidance, the septum was traversed twice to deploy the two Bustamante sheaths into the left atrium. The patient was heparinized for a goal ACT of 350-400 seconds. Following the first and preceding the second transseptal puncture for the entire time we were in the left atrium. A resurvey of the pericardial space showed no evidence of effusion. Through the two Bustamante sheaths an F-Curve SmartTouch irrigating ablation catheter was passed, as was a 20 PentaRay catheter. A three-dimensional electroanatomic map of the left atrium and four pulmonary veins was created using the Net 263 3 system. Circumferential ablation lesions were performed along the ostia of each of the pulmonary veins achieving entrance and exit block. The left upper pulmonary vein was addressed first followed by left lower, right upper, and right lower pulmonary vein. Following entrance block in the left upper pulmonary vein, a 200-joule biphasic synchronized shock was induced to convert the patient to sinus rhythm. The remaining veins were then addressed. Of note, the left upper pulmonary vein continued to have signal that was highly suspicious for far field signal from the left atrial appendage. Extensive ablation was performed, and ultimately I aborted further ablation along the vein given its size and proximity to the left atrial appendage. The remaining three veins were isolated for both entrance and exit blocks definitively. We then left the left atrium, turned off the heparin, and reversed the patient's heparin with protamine. All catheters and sheaths were removed. Manual pressure was held for hemostasis. The patient was transferred to the ICU for monitoring and bedrest. During the course of this study, we did complete a comprehensive electrophysiology study with right atrial pacing recording, right ventricular pacing recording HIS bundle recording, left atrial pacing recording. A barium esophagram was performed prior to the onset of any ablation that was closest to the posterior aspect of the left-sided pulmonary veins. COMPLICATIONS: None. ESTIMATED BLOOD LOSS: 15 cc. FINDINGS: 1. Baseline rhythm is atrial fibrillation post ablation and cardioversion. He is in sinus rhythm with an RR interval of 225 msec, LA 204 msec, QRS 112 msec, QTc 412 msec. 2. Intracardiac intervals: AH interval 101, HV 45 msec. 3. Retrograde conduction: Atrial activation is concentric. VA Wenckebach is less than 400 msec. 4. Pulmonary vein isolation as described above with entrance and exit block. IMPRESSION: Successful pulmonary vein isolation procedure for drug refractory symptomatic atrial fibrillation. PLAN: 1. Bed rest times four hours. 2. Resume Xarelto, sotalol, metoprolol. 3. Protonix 40 mg p.o. daily times one month. 4. Monitoring overnight. 5. Follow up with Luisito Rivera in four weeks, with me in three months. ATTENDING STATEMENT: Edil Vargas MD, electrophysiology attending was present for and supervised/performed all aspects of this procedure
[2016-11-16] MEDS: Insulin LISPRO 300 Unit/3 mL Inj SUBQ SCH (23:52)
[2016-11-17 00:52] VITALS: BP 127/83; PULSE 70; RESP 20; O2SAT 94
[2016-11-17 04:14] VITALS: BP 131/81; PULSE 68; RESP 20; O2SAT 97
[2016-11-17 05:04] VITALS: PULSE 67
--- NOTE | 2016-11-17 05:49 | NUR ---
Groin sites Right groin site soft non tender with no hematoma noted and no complications. Left groin was found to be oozing upon assessment with BLESSING nurse. Area cleaned and new dressing placed with 5lbs weight as well. Reassessed groin 1.5 hours later and still oozing noted. Changed dressing again and replaced 5lbs weight. Reassessed groin 2 hours later and no drainage noted and weight removed. Pt declining to get out of bed at this point. Reassessed groin 4 hours later and no drainage noted and site is still soft non tender with no hematoma noted. VSS and Tele SR.
[2016-11-17] MEDS ORDERED: Pantoprazole 40 mg ER24 Tablet PO SCH (06:30)
[2016-11-17 07:37] VITALS: BP 136/85; PULSE 70; RESP 20; O2SAT 96
[2016-11-17 08:00] VITALS: PULSE 65
[2016-11-17] MEDS: Insulin LISPRO 300 Unit/3 mL Inj SUBQ SCH (08:00)
[2016-11-17] MEDS ORDERED: MeTOProlol XL 50 mg ER24 Tablet PO SCH (08:30)
--- NOTE | 2016-11-17 09:41 | PCM.DIMED ---
Discharge Instructions Date of Service November 17, 2016 Dates of Hospitalization Discharge Diagnosis Discharge Diagnosis Atrial Fibrillation Coronary Artery Disease Prior Cardioversions Diabetes Diet Discharge Diet: Low fat, Low Sodium, Heart Healthy Activity Discharge Activity: Other (To prevent infection, do not sit in a bath tub, hot tub or pool for 5 days. To prevent bleeding, do not lift, push or pull more than 10 lbs for 5 days.) Call your provider Call your provider for: Bleeding, Excessive diarrhea, Weakness (unilateral) Patient Instructions Provider: Edil Vargas MD Follow-up in: Other (Appt. on 2016 at 2:00) Mid-level Provider (F9): Luisito Rivera PA-C Follow-up with Mid-level in: 4 weeks (Appt. on 12-19-16 at 1:40) Luisito Rivera PA-C November 17, 2016 09:41
[2016-11-17] MEDS ORDERED: PANT40TA3 PO ×2 (09:58→10:02)
[2016-11-17] MEDS ORDERED: CLOP75TA28 PO (10:16)
--- NOTE | 2016-11-17 10:45 | DIS ---
[address] [address] DISCHARGE SUMMARY PATIENT: AMAN JACKSON : 1945 MR#: [id number] ADMIT: 11/16/2016 JOB ID: [id number] DIS: REASON FOR ADMISSION: Atrial fibrillation ablation. CHIEF COMPLAINT: Fatigue and dyspnea with exertion, in atrial fibrillation. HISTORY OF PRESENT ILLNESS: The patient is a pleasant 71-year-old man with coronary artery disease who is status post PCI five years ago and he has mildly reduced LV systolic function with an ejection fraction of 45% to 50% while in atrial fibrillation. The arrhythmia had been paroxysmal but has now become persistent, and he has had a total of three cardioversions on antiarrhythmic medications and they have not been successful. He is maintained on sotalol but wishes to be in normal rhythm. COURSE IN HOSPITAL: The patient was admitted through the [facility] and taken to the catheterization laboratory, where he was placed under anesthesia by the anesthesiologist. He then had a PETER, which showed no evidence of left atrial thrombus. The ablation procedure was then undertaken and completed without incident. At the end, the right and left femoral venous sheaths were removed, hemostasis was obtained and he was awakened from anesthesia. He was transferred back to the [facility] for recovery from sedation and then up to the [facility] for overnight telemetry and observation. He did well overnight, he remained in sinus rhythm, his Sharma catheter was removed and he was able to void spontaneously. He had some oozing of blood at the left femoral site, and this was managed with compression and a 5-pound weight. In the morning both right and left femoral venous sites were dry, and there was no hematoma or ecchymosis. Other than some esophageal irritation, he has no pain and feels improved and ready to go home. DISPOSITION: The patient was discharged home in good condition with a followup appointment at the [facility] Cardiology office in one month. To prevent bleeding, he was asked not to lift, push, or pull more than 10 pounds for five days and to prevent infection, he was asked not to sit in a bathtub, hot tub, or pool for five days. He will follow a heart healthy and diabetic diet and take medications as prescribed. HOME MEDICATIONS: 1. Aspirin 81 mg daily. 2. Atorvastatin 20 mg daily. 3. Plavix has been stopped. 4. Furosemide 40 mg daily. 5. Glipizide 5 mg b.i.d. 6. Insulin NPH 35 units subcu daily. 7. Lisinopril 10 mg daily. 8. Metformin 1000 mg b.i.d. 9. Metoprolol succinate 50 mg t.i.d. 10. Oxycodone/acetaminophen 5/325 mg 1 or 2 tablets q.4 h. p.r.n. pain. 11. Xarelto 20 mg daily. 12. Sotalol 80 mg q.12 h. 13. Tamsulosin 0.[address] 40 mg daily for 1 month only. FINAL DIAGNOSES: 1. Paroxysmal and now persistent atrial fibrillation. 2. Coronary artery disease. 3. Prior cardioversions. 4. Diabetes.
--- NOTE | 2016-11-17 11:01 | NUR ---
activity/discharge/meds Pt up SBA to bathroom, denies SOB, dizziness of CP. TELE SR. Pt D/Cd home in stable condition. Med instructions/follow up and groin site instructions reviewed and also given written info to patient, no questions at this time. Meds clarified with SHIRA, pt to continue plavix and xerlato as well as metoprolol and sotalol. PIV x2 D/Cd intact, TELE removed.
== END 2016-11-17 10:45 | disposition home or self-care (01) ==
LOC: SOUO 00:25 → PCC 19:04 → SOUO 11-17 10:45
PROVIDERS: ATTEND Internal Medicine Cardiovascular Disease
DX: I48.1 Persistent atrial fibrillation (principal); I48.0 Paroxysmal atrial fibrillation; I25.10 Atherosclerotic heart disease of native coronary artery without angina pectoris; I42.9 Cardiomyopathy, unspecified; E11.9 Type 2 diabetes mellitus without complications; Z95.5 Presence of coronary angioplasty implant and graft; Z79.899 Other long term (current) drug therapy; Z79.82 Long term (current) use of aspirin; Z79.02 Long term (current) use of antithrombotics/antiplatelets; Z79.84 Long term (current) use of oral hypoglycemic drugs; Z79.01 Long term (current) use of anticoagulants; Z79.4 Long term (current) use of insulin
CPT/HCPCS: 36415; 80048; 85025; 85610; 92960; 93005; 93613; 93656; 93662; C1730; C1732; C1759; C1769; C1894; C8925; J0330; J1644; J1815; J2250; J2370; J2405; J2720; J3010; J7030; Q9957

== ENCOUNTER 2016-11-23 00:39 | Day surgery (SDC) | payer MEDICARE, OTHER ==
[2016-11-23] VITALS (7 sets, daily range): BP systolic 89–110; BP diastolic 56–85; PULSE 72–117; RESP 16–18; O2SAT 96–98
[~2016-11-23] VITALS: Ht 190.5 cm; Wt 138.0 kg
[~2016-11-23 00:39] MED LIST changes: +CLOP75TA28 PO; -CLOP75TA3 PO; +PANT40TA3 PO
[2016-11-23] MEDS ORDERED: 0.9% Sodium Chloride 250 ML ONE (06:57)
[2016-11-23 07:27] LABS: BASOPHILS % (AUTO) 0.5 % (0-3); EOSINOPHILS % (AUTO) 2.5 % (0-5); MONOCYTES % (AUTO) 10.6 % (4-12); NEUTROPHILS % (AUTO) 58.9 % (40-74); Platelet Count 222 bil/L (150-400)
--- NOTE | 2016-11-23 07:50 | NUR ---
Admitted for Cardioversion today for a return of Atrial fibrillation after a A-fib ablation last week with Dr Vargas. Yesterday he was being seen by a Sleep study MD and was found to be in Atrial fib. Here today in Atrial Fib rates in the upper 100's. Pt denies SOB or Chest pressure/pain. 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
[2016-11-23] MEDS ORDERED: Methohexital 10 mg/mL 50 mL Inj ONE (08:01)
[2016-11-23] MEDS ORDERED: Atropine 1 mg/10 mL (Code) Syringe ONE (08:02)
[2016-11-23] MEDS ORDERED: 0.9% Sodium Chloride 1,000 ML IV SCH (08:25)
[2016-11-23] MEDS ORDERED: Atropine 1 mg/10 mL (Code) Syringe IVPUSH PRN (08:40)
--- NOTE | 2016-11-23 08:54 | PROCED ---
[address] [address] PROCEDURE NOTE PATIENT: AMAN JACKSON : 1945 MR#: [id number] ADMIT: 11/23/2016 JOB ID: [id number] DATE OF SERVICE: 11/23/2016 PREOPERATIVE DIAGNOSIS(ES): Atrial flutter. POSTOPERATIVE DIAGNOSIS(ES): Sinus rhythm. PROCEDURE PERFORMED: Direct current cardioversion. SURGEON: Edil Vargas M.D., electrophysiology attending. SEDATION: 1 mg of Versed and 50 mg of Brevital were utilized for appropriate level of sedation. INDICATION: The patient is a pleasant 71-year-old man who underwent atrial fibrillation ablation last week. He comes in today with symptomatic atrial flutter. After discussion of the risks and benefits of cardioversion, he opted to proceed. PROCEDURAL DESCRIPTION: After informed consent, the patient was taken to the procedure suite in the fasting state. Defibrillator patches were placed in the anterior and posterior positions. After adequate sedation, a 200 joule biphasic synchronized shock was used to convert him to sinus rhythm. He will be allowed to recover and discharged home for close followup. COMPLICATIONS: None. BLOOD LOSS: None. IMPRESSION: Successful direct current cardioversion. PLAN: 1. Recovery and discharge from the [facility]ESSING. 2. Continue current medication regimen including anticoagulation and sotalol. 3. Followup with Luisito Rivera in 3-4 weeks. 4. If recurrence of atrial flutter, consideration for cavotricuspid isthmus ablation. ATTENDING STATEMENT: Edil Vargas M.D., electrophysiology attending, was present for and supervised/performed all aspects of this procedure.
--- NOTE | 2016-11-23 09:23 | NUR ---
Successful Cardioversion - from Atrial Flutter - not Atrial Fib. Follow up with Dr Vargas and Luisito HAHN arranged from previous admission. 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 NSR at D/C rates in the 70's.
== END 2016-11-23 23:59 | disposition home or self-care (01) ==
LOC: SOUO 00:39
PROVIDERS: ATTEND Internal Medicine Cardiovascular Disease
DX: I48.92 Unspecified atrial flutter (principal); I48.1 Persistent atrial fibrillation; I25.10 Atherosclerotic heart disease of native coronary artery without angina pectoris; Z79.899 Other long term (current) drug therapy; Z79.82 Long term (current) use of aspirin; I42.9 Cardiomyopathy, unspecified
CPT/HCPCS: 36415; 80048; 85025; 92960; 93005; 94799; 99152; J7050